=== PATIENT | male | born 1950 | race Caucasian/White ===

== ENCOUNTER 2019-05-25 17:21 | Emergency (ER) | payer OTHER ==
[2019-05-25 18:14] LABS: Absolute Lymphocytes (CBC) 1.7 K/uL (0.7-4.9); Basophils % 0.6 % (0-1.3); Hematocrit 36.7 % (39.6-49.0); Lymphocytes % 17.9 % (15.3-44.8); MPV 8.2 fL (7.6-11.3); RBC Red Blood Cell Count 4.21 M/uL (4.33-5.43)
[2019-05-25 18:28] LABS: Protime INR 1.05
[2019-05-25 18:32] LABS: Potassium 4.2 mmol/L (3.5-5.1)
--- NOTE | 2019-05-25 18:42 | RAD REPORT ---
EXAM DESCRIPTION: US - Extremity Nonvascular Limited - 05/25/2019 6:31 pm CLINICAL HISTORY: Buttock pain COMPARISON: None FINDINGS: Sonographic evaluation of the buttocks near midline demonstrate edema within the subcutane ous tissues. An abscess is not seen. A mass is not visualized IMPRESSION: Edema within the subcutaneous tissues of the buttocks near midline may indicate a cellul itis and should be correlated clinically
[2019-05-25] MEDS ORDERED: LIDOCAINE 2% W/EPI 1:200,000 MPF 20 ML VIAL IM ONE (19:05)
[2019-05-25] MEDS ORDERED: CLINDAMYCIN 900MG/D5W 900 MG/50 ML IVPB IV ONE (19:38)
--- NOTE | 2019-05-25 20:15 | EDPHYS ---
Physician Documentation [facility] Name: Srinivas Castrejon Age: 68 yrs Sex: Male : 1950 Arrival Date: 05/25/2019 Time: 17:25 Bed 16 Private MD: ED Physician Filipe Simms HPI: 05/25 17:55 This 68 yrs old Male presents to ER via Ambulatory with complaints of Abscess.cp 17:55 The patient presents with an abscess of the intergluteal cleft. Description: swollen, cp tense. Onset: The symptoms/episode began/occurred 1 week(s) ago. Associated signs and symptoms: Pertinent negatives: discharge, drainage, fever. Patient reports he is currently taking prescribed Keflex. Historical: - Allergies: 17:29 No Known Allergies; la1 - PMHx: 17:29 Diabetes - NIDDM; Hypertension; High Cholesterol; GERD; la1 - Immunization history:: Adult Immunizations up to date. - Social history:: Smoking status: Patient/guardian denies using tobacco. - Ebola Screening: : No symptoms or risks identified at this time. ROS: 18:05 Constitutional: Negative for body aches, chills, fever, poor PO intake. cp 18:05 Eyes: Negative for injury, pain, redness, and discharge. cp 18:05 Cardiovascular: Negative for chest pain. 18:05 Respiratory: Negative for cough, shortness of breath, wheezing. 18:05 Abdomen/GI: Negative for abdominal pain, nausea, vomiting, and diarrhea. 18:05 Skin: Positive for of the intergluteal cleft, pain, swelling. 18:05 All other systems are negative. Exam: 18:10 Constitutional: The patient appears in no acute distress, alert, awake, non-toxic, well cp developed, well nourished, obese. 18:10 Head/Face: Normocephalic, atraumatic. cp 18:10 Eyes: Periorbital structures: appear normal, Conjunctiva: normal, no exudate, no injection, Lids and lashes: appear normal, bilaterally. 18:10 ENT: External ear(s): are unremarkable, Nose: is normal, Mouth: is normal. 18:10 Chest/axilla: Inspection: normal. 18:10 Cardiovascular: Rate: normal. 18:10 Respiratory: the patient does not display signs of respiratory distress, Respirations: normal, no use of accessory muscles, no retractions, no splinting, no tachypnea. 18:10 Skin: abscess, that is small, of the intergluteal cleft, with surrounding cellulitis, that is mild. Vital Signs: 17:29 BP 145 / 60; Pulse 78; Resp 16; Temp 98.0; Pulse Ox 100% on R/A; Weight 120.2 kg; la1 Height 5 ft. 8 in. (172.72 cm); 19:00 BP 151 / 89; Pulse 80; Resp 16; Temp 98; Pulse Ox 100% ; Pain 8/10; rr5 20:25 BP 141 / 66; Pulse 75; Resp 17; Temp 97.5; Pulse Ox 99% on R/A; Pain 0/10; rr5 17:29 Body Mass Index 40.29 (120.20 kg, 172.72 cm) la1 Procedures: 20:10 I \T\ D: Incision and drainage was performed for an abscess of the pilonidal cyst Prepped cp with Betadine, Anesthetized with ml's 2% Lidocaine with epinephrine. 8 ml's 2% Lidocaine with epinephrine. mixed with 8ccs 0.5% Marcaine. Incised with #11 blade. Drained small amount purulent fluid. Packed with iodoform gauze, Dressing: sterile 4x4 gauze, the patient tolerated the procedure well. MDM: 17:45 Patient medically screened. cp 20:12 Data reviewed: vital signs, nurses notes, lab test result(s), and as a result, I will cp discharge patient. 20:12 Differential diagnosis: abscess, cellulitis. Response to treatment: the patient's cp symptoms have markedly improved after treatment. 05/25 17:47 Order name: CBC with Diff; Complete Time: 19:00 cp 05/25 17:47 Order name: BMP; Complete Time: 19:00 cp 05/25 17:47 Order name: US Extrmty Nonvasular Limited: check for abscess; Complete Time: 19:00 cp 05/25 17:47 Order name: PT-INR; Complete Time: 19:00 cp 05/25 17:47 Order name: Procalcitonin; Complete Time: 19:00 cp 05/25 20:34 Order name: Wound Culture rr5 05/25 17:47 Order name: IV; Complete Time: 17:56 cp 05/25 19:08 Order name: I\T\D Setup; Complete Time: 19:35 cp Administered Medications: 19:15 Drug: Marcaine (0.5 %) 5 ml {Note: given by page.} Volume: 10 ml; Route: Infiltration; rr5 20:34 Follow up: Response: No adverse reaction rr5 19:16 Drug: Lidocaine (1 %) 5 ml {Note: given by page.} Volume: 5 ml; Route: Infiltration; rr5 20:35 Follow up: Response: No adverse reaction rr5 19:47 Drug: Clindamycin 900 mg Route: IVPB; Infused Over: 30 mins; Site: left antecubital; rr5 20:15 Follow up: Response: No adverse reaction; IV Status: Completed infusion; IV Intake: [id number] Disposition: 05/25/19 20:13 Discharged to Home. Impression: Pilonidal cyst with abscess. - Condition is Stable. - Discharge Instructions: Incision and Drainage, Pilonidal Cyst. - Prescriptions for Clindamycin HCl 300 mg Oral Capsule - take 1 capsule by ORAL route every 6 hours for 10 days; 40 capsule. Tylenol- Codeine #3 300-30 mg Oral Tablet - take 2 tablets by ORAL route every 6 hours As needed; 15 tablet. Bactrim DS 800- 160 mg Oral Tablet - take 1 tablet by ORAL route every 12 hours for 10 days; 20 tablet. - Medication Reconciliation Form, Thank You Letter, Antibiotic Education, Prescription Opioid Use form. - Follow up: Francisco Correia MD; When: 48 Hours; Reason: Wound Recheck. - Problem is an ongoing problem. - Symptoms have improved. Signatures: Dispatcher [employer] EDMS Andrey Mantilla RN RN la1 Josh Ivan PA PA cp Roque, Raymond RN RN rr5 Corrections: (The following items were deleted from the chart) 20:35 20:13 05/25/2019 20:13 Discharged to Home. Impression: Pilonidal cyst with abscess. rr5 Condition is Stable. Forms are Medication Reconciliation Form, Thank You Letter, Antibiotic Education, Prescription Opioid Use. Follow up: Francisco Correia; When: 48 Hours; Reason: Wound Recheck. Problem is an ongoing problem. Symptoms have improved. cp
--- NOTE | 2019-05-25 20:15 | ER ---
Nurse's Notes [facility] Name: Srinivas Castrejon Age: 68 yrs Sex: Male : 1950 Arrival Date: 05/25/2019 Time: 17:25 Bed 16 Private MD: Diagnosis: Pilonidal cyst with abscess Presentation: 05/25 17:27 Presenting complaint: Patient states: I have an abscess in my butt crack, it has been la1 there about a week and I was on keflex but its not helping. Transition of care: patient was not received from another setting of care. Onset of symptoms was May 25, 2019. Risk Assessment: Do you want to hurt yourself or someone else? Patient reports no desire to harm self or others. Initial Sepsis Screen: Does the patient meet any 2 criteria? No. Patient's initial sepsis screen is negative. Does the patient have a suspected source of infection? No. Patient's initial sepsis screen is negative. Care prior to arrival: None. 17:27 Method Of Arrival: Ambulatory la1 17:27 Acuity: BETTY 3 la1 Triage Assessment: 17:31 General: Appears in no apparent distress. uncomfortable, Behavior is calm, cooperative, hj appropriate for age. Pain: Complains of pain in gluteal cleft. Historical: - Allergies: 17:29 No Known Allergies; la1 - PMHx: 17:29 Diabetes - NIDDM; Hypertension; High Cholesterol; GERD; la1 - Immunization history:: Adult Immunizations up to date. - Social history:: Smoking status: Patient/guardian denies using tobacco. - Ebola Screening: : No symptoms or risks identified at this time. Screenin:31 Abuse screen: Denies threats or abuse. Denies injuries from another. Nutritional hj screening: No deficits noted. Tuberculosis screening: No symptoms or risk factors identified. Fall Risk None identified. Assessment: 12:00 Neuro: Level of Consciousness is awake, alert, obeys commands, Oriented to person, rr5 place, time, situation, Appropriate for age. Cardiovascular: Capillary refill < 3 seconds Patient's skin is warm and dry. Respiratory: Airway is patent Respiratory effort is even, unlabored, Respiratory pattern is regular, symmetrical. GI: No signs and/or symptoms were reported involving the gastrointestinal system. : No signs and/or symptoms were reported regarding the genitourinary system. EENT: No signs and/or symptoms were reported regarding the EENT system. Derm: Skin temperature is warm Abscess located on buttocks is dime sized, has clear drainage, is hot to touch, is red, is raised, Reports pain that is 8 out of 10 on a pain scale. Musculoskeletal: Circulation, motion, and sensation intact. Capillary refill < 3 seconds. 19:00 General: Appears in no apparent distress. comfortable, Behavior is calm, cooperative, rr5 appropriate for age. Pain: Complains of pain in buttocks Pain does not radiate. Pain currently is 8 out of 10 on a pain scale. Quality of pain is described as aching, Pain began gradually, Is intermittent. 20:25 Reassessment: Patient appears in no apparent distress at this time. Patient is alert, rr5 oriented x 3, equal unlabored respirations, skin warm/dry/pink. discharge instruction given and explained without complaints made. Patient states feeling better. Patient states symptoms have improved. Vital Signs: 17:29 BP 145 / 60; Pulse 78; Resp 16; Temp 98.0; Pulse Ox 100% on R/A; Weight 120.2 kg; la1 Height 5 ft. 8 in. (172.72 cm); 19:00 BP 151 / 89; Pulse 80; Resp 16; Temp 98; Pulse Ox 100% ; Pain 8/10; rr5 20:25 BP 141 / 66; Pulse 75; Resp 17; Temp 97.5; Pulse Ox 99% on R/A; Pain 0/10; rr5 17:29 Body Mass Index 40.29 (120.20 kg, 172.72 cm) la1 ED Course: 17:25 Patient arrived in ED. mr 17:29 Triage completed. la1 17:29 Arm band placed on left wrist. la1 17:30 Francisco Arceo RN is Primary Nurse. hj 17:31 Patient has correct armband on for positive identification. Placed in gown. Bed in low hj position. Call light in reach. Side rails up X 1. Adult w/ patient. 17:32 Josh Ivan PA is PHCP. cp 17:32 Filipe Simms MD is Attending Physician. cp 18:31 US Extrmty Nonvasular Limited: check for abscess In Process Unspecified. EDMS 20:00 Assist provider with I \T\ D: of an abscess on Set up I\T\D tray. Performed by Josh Ivan rr 5 PA Culture sent to lab. Wound packed. 4X4s, Dressing with 4X4s, tape Patient tolerated well. 20:12 Francisco Correia MD is Referral Physician. cp 20:30 IV discontinued, intact, bleeding controlled, No redness/swelling at site. Pressure rr5 dressing applied. 20:36 Wound Culture Sent. rr5 Administered Medications: 19:15 Drug: Marcaine (0.5 %) 5 ml {Note: given by page.} Volume: 10 ml; Route: Infiltration; rr5 20:34 Follow up: Response: No adverse reaction rr5 19:16 Drug: Lidocaine (1 %) 5 ml {Note: given by page.} Volume: 5 ml; Route: Infiltration; rr5 20:35 Follow up: Response: No adverse reaction rr5 19:47 Drug: Clindamycin 900 mg Route: IVPB; Infused Over: 30 mins; Site: left antecubital; rr5 20:15 Follow up: Response: No adverse reaction; IV Status: Completed infusion; IV Intake: [id number] Intake: 20:15 IV: 50ml; Total: 50ml. rr5 Outcome: 20:13 Discharge ordered by . cp 20:30 Discharged to home ambulatory, with family. rr5 20:30 Condition: stable 20:30 Discharge instructions given to patient, Instructed on discharge instructions, follow up and referral plans. medication usage, Demonstrated understanding of instructions, follow-up care, medications, Prescriptions given X 3. 20:35 Patient left the ED. rr5 Signatures: Dispatcher [employer] BALJEETOH Maikel Dorys Andrey Payton RN RN la1 Francisco Arceo, RN Josh Guillen PA PA cp Roque, Raymond, RN RN rr5
== END 2019-05-25 20:35 | disposition home or self-care (01) ==
LOC: ER 17:21
PROC: 0J990ZZ Drainage of Buttock Subcutaneous Tissue and Fascia, Open Approach (ICD-10-PCS; principal; 2019-05-25)
DX: L05.01 Pilonidal cyst with abscess (principal)
CPT/HCPCS: 36415; 76882; 80048; 84145; 85025; 85610; 87070; 87205; 96365; 99284

== ENCOUNTER 2019-08-10 06:15 | Day surgery (SDC) | payer OTHER ==
--- NOTE | 2019-08-08 15:38 | RAD REPORT ---
EXAM DESCRIPTION: RAD - Chest Pa And Lat (2 Views) - 08/08/2019 3:15 pm CLINICAL HISTORY: preop, pending soft tissue mass removal from the back COMPARISON: None. TECHNIQUE: PA and lateral views of the chest were obtained. FINDINGS: The lungs are clear. Interstitial pattern not outside of normal range. Heart size is norm al and central vasculature is within normal limits. No pleural effusion or pneumothorax seen. No ac [place] bony finding noted. No aortic abnormality. IMPRESSION: No acute cardiopulmonary process.
--- NOTE | 2019-08-08 15:42 | EKG ---
Test Date: 2019-08-08 Test Time: 15:56:12 Reed Polisher: YESICA MEASUREMENT RESULTS: Intervals: Rate: 72 NM: 138 QRSD: 78 QT: 380 QTc: 416 Rosalie: P: 40 NM: 138 QRS: -2 T: 10 INTERPRETIVE STATEMENTS: Normal sinus rhythm Inferior infarct, age undetermined Abnormal ECG No previous ECG available for comparison Electronically Signed On 08-08-19 15:41:31 ENTRY EXAMINER by Beck Estrada
[2019-08-08 15:43] LABS: Absolute Lymphocytes (CBC) 1.5 K/uL (0.7-4.9); Basophils % 0.9 % (0-1.3); Hematocrit 37.5 % (39.6-49.0); Lymphocytes % 15.4 % (15.3-44.8); MPV 8.4 fL (7.6-11.3); RBC Red Blood Cell Count 4.29 M/uL (4.33-5.43)
[2019-08-08 15:57] LABS: Potassium 4.2 mmol/L (3.5-5.1)
[2019-08-10] MEDS ORDERED: NA CHLORIDE 0.9% 1,000 ML ONE (06:47)
[2019-08-10] MEDS ORDERED: MIDAZOLAM HCL 2 MG/2 ML INJ ONE (07:11)
[2019-08-10] MEDS ORDERED: FENTANYL CITR 100 MCG/2 ML ONE (07:11)
[2019-08-10] MEDS ORDERED: PROPOFOL 200 MG/20 ML VIAL IV ONE (07:11)
[2019-08-10] MEDS ORDERED: ROCURONIUM 50 MG/5 ML VIAL IV ONE (07:11)
[2019-08-10] MEDS ORDERED: LIDOCAINE 1% MPF 5 ML VIAL ONE (07:11)
[2019-08-10] MEDS ORDERED: METHYLENE BLUE 0.5% 10 ML AMP ONE (07:12)
[2019-08-10] MEDS ORDERED: Mastisol Adhesive Liq ONE (07:17)
[2019-08-10] MEDS ORDERED: CEFAZOLIN/SWI 1gm 1 GM/10 ML SYR ONE (07:30)
[2019-08-10] MEDS ORDERED: NEOSTIGMINE 1 MG/ML -5 ML ONE (07:52)
[2019-08-10] MEDS ORDERED: GLYCOPYRROLATE 0.2 MG/ML SYR ONE ×3 (07:53→08:11)
[2019-08-10] MEDS ORDERED: KETOROLAC 30 MG/ML INJ ONE (07:53)
[2019-08-10] MEDS ORDERED: ONDANSETRON 4 MG/2 ML VIAL ONE (08:00)
[2019-08-10] MEDS ORDERED: EPHEDRINE SULF 50 MG/ML VIAL ONE (08:01)
[2019-08-10] MEDS ORDERED: NS 0.9% VIAL 10 ML ONE (08:02)
--- NOTE | 2019-08-10 08:08 | P.BOP ---
Preoperative diagnosis: infected pilonidal cyst Postoperative diagnosis: same Primary procedure: Wide excision of infected pilonidal cyst Estimated blood loss: <10cc Specimen: cyst Findings: as above Anesthesia: General Complications: None Transferred to: Recovery Room Condition: Good
[2019-08-10] MEDS ORDERED: ALBUTEROL 2.5 MG/3 ML NEB SOL ONE (08:16)
[2019-08-10] MEDS ORDERED: SUCCINYLCHOLINE 20 MG/ML (10 ML) IV ONE (08:22)
[2019-08-10] MEDS ORDERED: CODEINE 30MG/APAP 300MG TAB ONE (09:23)
[2019-08-10 09:31] VITALS: BP 174/62; TEMP 97.7; O2SAT 94
--- NOTE | 2019-08-11 02:18 | DS ---
Date of Discharge: 08/10/2019 Diagnosis: Infected pilonidal cyst. Procedure: Wide excision of infected pilonidal cyst. Disposition: Home. Activity: As tolerated. No heavy lifting. Followup: Follow up in my office in 1 week. Call for appointment at [phone]. Wet-to-dry dressing and normal saline daily. Medications: See orders. KAELYN/JOSE DANIEL Voice ID: [id number] Report ID: [id number]
--- NOTE | 2019-08-11 02:18 | OP ---
Date of Procedure: 08/10/2019 Surgeon: Francisco Correia MD Preoperative Diagnosis: Infected pilonidal cyst. Postoperative Diagnosis: Infected pilonidal cyst. Procedure Performed: Wide excision of infected pilonidal cyst about 3 x 3 x 2 cm. Estimated Blood Loss: Less than 10 mL. Specimens: Cyst. Findings: As above. Anesthesia: General plus local. Indications: This is the case of a 68-year-old patient, who comes with infected pilonidal cyst, on a nd off drainage. The benefits, alternatives, and risks of wide excision were fully explained, which include but are not limited to infection, bleeding, damage to adjacent structures, anesthesia complic ations, recurrence, [place], and even . He also understands this may not relieve any symptoms. He m ight need more than one surgical intervention. He may require wound care. He understood, signed a c onsent. The area of concern was previously marked. Description Of Procedure: Patient was brought to the operating room, placed in supine position. Ane sthesia was done without complication. Patient was placed in prone position with proper protection. Back and sacral area was prepped and draped in sterile fashion. We noted the opening coming from th e previous drainage. So, we put the methylene blue over that area. We were able to find the stain i n the cavities inside. We made an incision, followed these cavities, had a complex pilonidal cyst in that region, completely excised leaving a cavity behind as described above. We obtained hemostasis. Then we injected local anesthetic, irrigate the area, and then packed the area with wet-to-dry dressing. Patient tolerated the procedure well. Patient was sent to recovery in stable c ondition. KAELYN/JOSE DANIEL Voice ID: [id number] Report ID: [id number]
== END 2019-08-10 10:05 | disposition home or self-care (01) ==
LOC: OR 06:15
PROVIDERS: ATTEND Surgery
PROC: 0JB90ZZ Excision of Buttock Subcutaneous Tissue and Fascia, Open Approach (ICD-10-PCS; principal; 2019-08-10 07:30)
DX: L05.91 Pilonidal cyst without abscess (principal); E11.9 Type 2 diabetes mellitus without complications; I10 Essential (primary) hypertension; K21.9 Gastro-esophageal reflux disease without esophagitis; E78.00 Pure hypercholesterolemia, unspecified; Z80.1 Family history of malignant neoplasm of trachea, bronchus and lung; Z83.3 Family history of diabetes mellitus; Z82.49 Family history of ischemic heart disease and other diseases of the circulatory system
CPT/HCPCS: 93005; 85025; 80048; 36415; 82947 ×2; 88304; 71046; 11772; J2704; J0330; J2250; J3010; J2710; J0690; J7030; J2405

== ENCOUNTER 2020-10-12 15:58 | Emergency (ER) | payer OTHER ==
--- OUTSIDE RECORDS SUMMARY | 2020-10-12 16:01 | XMS REPORT | Continuity of Care Document ---
:1950 Author Organization [facility] t Address [address] [place] [address] Care Team Providers Name Role Phone Radha MOORE, Declan Attending Clinician Deny NEVES, T Attending Clinician Unavailable Hamilton TRACEY Attending Clinician Only, Test Attending Clinician Unavailable Problems This patient has no known problems. Allergies, Adverse Reactions, Alerts This patient has no known allergies or adverse reactions. Medications This patient has no known medications. Procedures This patient has no known procedures. Encounters Start End Encounter Admission Attending Care Care Encounter Source Date/Time Date/Time Type Type Clinicians Facility Department ID 2020-05-23 2020-05-23 Telephone NED Garcia [id number] 00:00:00 00:00:00 Handy GARCIA [id number] 2020-05-23 2020-05-23 Letter NED Barclay [id number] 00:00:00 00:00:00 (Out) Chika GARCIA [id number] 2020-05-23 2020-05-23 Letter THOMAS Villasenor [id number] 00:00:00 00:00:00 (Out) Vanesa Keith [id number] [place] [id number] 2020-05-22 2020-05-22 Laboratory Only, [facility] [id number] 11:48:05 12:03:05 Only Test [place] [id number] [id number] [place] [id number] Results This patient has no known results.
[2020-10-12 21:04] LABS: Urine Blood NEGATIVE (NEG); Urine Glucose NEGATIVE (NEG); Urine Protein 3+ (NEG)
[2020-10-12 21:33] LABS: Basophils % 0.3 % (0-1.3); Hematocrit 38.5 % (39.6-49.0); Lymphocytes % 19.5 % (15.3-44.8); RBC Red Blood Cell Count 4.14 M/uL (4.33-5.43)
[2020-10-12] MEDS ORDERED: ONDANSETRON 4 MG/2 ML VIAL ONE (21:35)
[2020-10-12] MEDS ORDERED: LORazepam 2 MG/ML VIAL ONE (21:35)
[2020-10-12] MEDS ORDERED: FAMOTIDINE 20 MG/2 ML VIAL IV ONE (21:35)
[2020-10-12] MEDS ORDERED: NA CHLORIDE 0.9% 1,000 ML ONE (21:35)
[2020-10-12 21:53] LABS: ALT/SGPT 47 U/L (12-78); AST/SGOT 35 U/L (15-37); Albumin 3.4 g/dL (3.4-5.0); Alkaline Phosphatase 163 U/L (45-117); BUN Blood Urea Nitrogen 19 mg/dL (7-18); Bicarbonate 27 mmol/L (21-32); Bilirubin Direct 0.3 mg/dL (0-0.2); Bilirubin Total 0.7 mg/dL (0.2-1.0); Glucose Level 140 mg/dL (74-106); Lipase 118 U/L (73-393); Potassium 3.8 mmol/L (3.5-5.1); Protein, Total 6.8 g/dL (6.4-8.2); Sodium Level 138 mmol/L (136-145)
--- NOTE | 2020-10-13 00:30 | EDPHYS ---
Physician Documentation [facility] Name: Srinivas Castrejon Age: 69 yrs Sex: Male : 1950 Arrival Date: 10/12/2020 Time: 16:02 Bed 16 Private MD: Nam Goode T ED Physician Roel Garrido HPI: 10/12 21:08 This 69 yrs old Male presents to ER via Ambulatory with complaints of Alcohol mh7 Withdrawal, Diarrhea. 21:08 The patient presents with abdominal pain in the upper abdomen. Onset: The mh7 symptoms/episode began/occurred yesterday. The symptoms do not radiate. Associated signs and symptoms: Pertinent positives: diarrhea, nausea, Pertinent negatives: anorexia, blood in stools, chest pain, constipation, fever, headache, hematuria, palpitations, shortness of breath, testicular pain, vomiting, vomiting blood, States diarrhea for over a year. The symptoms are described as intermittent, vague, waxing/waning. Modifying factors: The symptoms are alleviated by nothing, the symptoms are aggravated by nothing. Severity of pain: At its worst the pain was moderate yesterday, in the emergency department the pain has improved moderately. Also states that he has had some shakiness since he stopped drinking alcohol 2 days ago. He had been drinking wine daily then intermittent and Listerine for the 2 weeks.. Historical: - Allergies: 16:23 No Known Allergies; ss - PMHx: 16:23 Diabetes - NIDDM; GERD; High Cholesterol; Hypertension; Alcoholism; ss - Immunization history:: Adult Immunizations up to date. - Social history:: Smoking status: Patient denies any tobacco usage or history of. ROS: 21:08 Constitutional: Negative for fever, chills, and weight loss, Eyes: Negative for injury, mh7 pain, redness, and discharge, ENT: Negative for injury, pain, and discharge, Neck: Negative for injury, pain, and swelling, Cardiovascular: Negative for chest pain, palpitations, and edema, Respiratory: Negative for shortness of breath, cough, wheezing, and pleuritic chest pain, Back: Negative for injury and pain, : Negative for injury, bleeding, discharge, and swelling, MS/Extremity: Negative for injury and deformity, Skin: Negative for injury, rash, and discoloration, Neuro: Negative for headache, weakness, numbness, tingling, and seizure, Psych: Negative for depression, anxiety, suicide ideation, homicidal ideation, and hallucinations, Allergy/Immunology: Negative for hives, rash, and allergies, Endocrine: Negative for neck swelling, polydipsia, polyuria, polyphagia, and marked weight changes, Hematologic/Lymphatic: Negative for swollen nodes, abnormal bleeding, and unusual bruising. Exam: 21:08 Constitutional: This is a well developed, well nourished patient who is awake, alert, mh7 and in no acute distress. Head/Face: Normocephalic, atraumatic. Eyes: Pupils equal round and reactive to light, extra-ocular motions intact. Lids and lashes normal. Conjunctiva and sclera are non-icteric and not injected. Cornea within normal limits. Periorbital areas with no swelling, redness, or edema. ENT: Nares patent. No nasal discharge, no septal abnormalities noted. Tympanic membranes are normal and external auditory canals are clear. Oropharynx with no redness, swelling, or masses, exudates, or evidence of obstruction, uvula midline. Mucous membranes moist. Neck: Trachea midline, no thyromegaly or masses palpated, and no cervical lymphadenopathy. Supple, full range of motion without nuchal rigidity, or vertebral point tenderness. No Meningismus. Chest/axilla: Normal chest wall appearance and motion. Nontender with no deformity. No lesions are appreciated. Cardiovascular: Regular rate and rhythm with a normal S1 and S2. No gallops, murmurs, or rubs. Normal PMI, no JVD. No pulse deficits. Respiratory: Lungs have equal breath sounds bilaterally, clear to auscultation and percussion. No rales, rhonchi or wheezes noted. No increased work of breathing, no retractions or nasal flaring. 21:08 Back: No spinal tenderness. No costovertebral tenderness. Full range of motion. Skin: Warm, dry with normal turgor. Normal color with no rashes, no lesions, and no evidence of cellulitis. 21:08 Neuro: Awake and alert, GCS 15, oriented to person, place, time, and situation. Cranial nerves II-XII grossly intact. Motor strength 5/5 in all extremities. Sensory grossly intact. Cerebellar exam normal. Normal gait. Psych: Awake, alert, with orientation to person, place and time. Behavior, mood, and affect are within normal limits. 21:08 Abdomen/GI: Inspection: scar(s), are noted in the umbilical area and suprapubic area, Bowel sounds: normal, in all quadrants, Palpation: moderate abdominal tenderness, in the epigastric area, right upper quadrant and left upper quadrant, Rectal exam: the exam is deferred, because of patient request, Indicators: McBurney's point is not tender, Rockwell's sign is negative, Rovsing's sign is negative, Obturator sign is negative, Psoas sign is negative, Liver: no appreciated palpable abnormalities, Hernia: not appreciated. 21:08 Musculoskeletal/extremity: Extremities: noted in the right hand and left hand: mild tremors, ROM: intact in all extremities, Circulation is intact in all extremities. Pulses: are normal with no appreciated deficits, Perfusion: the patient is normally perfused throughout, Perfusion: the extremity is normally perfused throughout, Calf tenderness, is absent, Edema, is not appreciated, Sensation intact. Compartment Syndrome exam of affected extremity: is normal. no pain, no numbness, no tingling, no sensation deficit, no palor, no weak pulses, Joints: All joints appear normal with full range of motion. Weight bearing: able to fully bear weight, without difficulty. Vital Signs: 16:19 BP 136 / 65; Pulse 81; Resp 18; Temp 98.5(TE); Pulse Ox 99% on R/A; Weight 104.33 kg; ss Height 5 ft. 8 in. (172.72 cm); Pain 2/10; 20:30 BP 141 / 62; Pulse 74; Resp 18; Pulse Ox 100% on R/A; zb 21:30 BP 151 / 79; Pulse 79; Resp 16; Pulse Ox 100% on R/A; zb 22:30 BP 133 / 66; Pulse 69; Resp 14; Pulse Ox 100% on R/A; zb 23:00 BP 136 / 66; Pulse 72; Resp 14; Pulse Ox 100% on R/A; zb 10/13 00:00 BP 138 / 61; Pulse 69; Resp 16; Pulse Ox 99% on R/A; zb 10/12 16:19 Body Mass Index 34.97 (104.33 kg, 172.72 cm) ss MDM: 00:26 Differential diagnosis: bowel obstruction, diverticulitis, gastritis, gastroesophageal mh7 reflux disease, non-specific abd pain, pancreatitis, Peptic Ulcer Disease, Ureterolithiasis, urinary tract infection. Data reviewed: vital signs, nurses notes, lab test result(s), CBC, electrolytes, urinalysis. Data interpreted: Pulse oximetry: on room air is 100 %. Interpretation: normal. Counseling: I had a detailed discussion with the patient and/or guardian regarding: the historical points, exam findings, and any diagnostic results supporting the discharge/admit diagnosis, the presence of at least one elevated blood pressure reading (>120/80) during this emergency department visit, lab results, radiology results, the need for outpatient follow up, to return to the emergency department if symptoms worsen or persist or if there are any questions or concerns that arise at home. Response to treatment: the patient's symptoms have resolved after treatment, the patient's blood pressure is in an acceptable range, mental status has returned to baseline, the patient no longer shows bradycardia, the patient is not short of breath, the patient is not tachycardic, the patient's pain is gone, the patient's temperature has normalized, patient is well hydrated. 00:28 Patient medically screened. [facility] 10/12 20:45 Order name: Basic Metabolic Panel; Complete Time: 22:12 [facility] 10/12 20:45 Order name: CBC with Diff; Complete Time: 22:12 [facility] 10/12 20:45 Order name: Hepatic Function; Complete Time: 22:12 [facility] 10/12 20:45 Order name: Lipase; Complete Time: 22:12 [facility] 10/12 20:45 Order name: ETOH Level; Complete Time: 22:53 [facility] 10/12 20:59 Order name: Urine Dipstick--Ancillary (enter results); Complete Time: 22:12 [facility] 10/12 20:45 Order name: IV Saline Lock; Complete Time: 21:12 [facility] 10/12 20:45 Order name: Labs collected and sent; Complete Time: 21:12 [facility] 10/12 20:45 Order name: CT Abd/Pelvis - IV Contrast Only [facility] 10/12 20:45 Order name: Urine Dipstick-Ancillary (obtain specimen); Complete Time: 21:01 [facility] 10/12 20:45 Order name: EKG - Nurse/Tech; Complete Time: 21: [facility] Administered Medications: 10/12 21:45 Drug: Pepcid 20 mg Route: IVP; Site: left antecubital; zb 23:32 Follow up: Response: No adverse reaction zb 21:45 Drug: Zofran (Ondansetron) 4 mg Route: IVP; Site: left antecubital; zb 23:31 Follow up: Response: No adverse reaction; Pain is decreased zb 21:45 Drug: Ativan 1 mg Route: IVP; Site: left antecubital; zb 23:31 Follow up: Response: No adverse reaction; Marked relief of symptoms zb 21:46 Drug: NS 0.9% 1000 ml Route: IV; Rate: 1000 ml; Site: left antecubital; zb 10/13 00:15 Follow up: Response: No adverse reaction; IV Status: Completed infusion; IV Intake: zb 1000ml 00:35 Drug: Librium - chlordiazePOXIDE 50 mg Route: PO; zb 00:59 Follow up: Response: No adverse reaction zb Disposition: 10/13/20 00:28 Discharged to Home. Impression: Upper abdominal pain, unspecified, Diarrhea, unspecified, Alcohol dependence with withdrawal, uncomplicated. - Condition is Stable. - Discharge Instructions: Abdominal Pain, Adult, [id number], Diarrhea, Adult, Niog-[id number], Alcohol Withdrawal, [id number]. - Prescriptions for Zofran ODT 4 mg Oral tablet,disintegrating - place 1 tablet by TRANSLINGUAL route every 8 hours; 6 tablet. Bentyl 20 mg Oral Tablet - take 1 tablet by ORAL route every 6 hours As needed; 20 tablet. Pepcid 20 mg Oral Tablet - take 1 tablet by ORAL route every 12 hours for 5 days; 10 tablet. - Medication Reconciliation Form, Thank You Letter, Antibiotic Education, Prescription Opioid Use form. - Follow up: Private Physician; When: 1 - 2 days; Reason: Worsening of condition, Recheck today's complaints, Continuance of care, Re-evaluation by your physician. - Problem is new. - Symptoms have improved. Signatures: Dispatcher [employer] EDMS Tawny Goodrich RN RN ss Andrey Mantilla, BIT WELDER-C BIT WELDER-Cla1 Roel Garrido MD MD 7 Nery Nye RN RN zb Corrections: (The following items were deleted from the chart) 01:03 00:28 10/13/2020 00:28 Discharged to Home. Impression: Upper abdominal pain, zb unspecified; Diarrhea, unspecified; Alcohol dependence with withdrawal, uncomplicated. Condition is Stable. Forms are Medication Reconciliation Form, Thank You Letter, Antibiotic Education, Prescription Opioid Use. Follow up: Private Physician; When: 1 - 2 days; Reason: Worsening of condition, Recheck today's complaints, Continuance of care, Re-evaluation by your physician. Problem is new. Symptoms have improved. mh7
--- NOTE | 2020-10-13 00:30 | ER ---
Nurse's Notes [facility] Name: Srinivas Castrejon Age: 69 yrs Sex: Male : 1950 Arrival Date: 10/12/2020 Time: 16:02 Bed 16 Private MD: Nam Goode T Diagnosis: Upper abdominal pain, unspecified;Diarrhea, unspecified;Alcohol dependence with withdrawal, uncomplicated Presentation: 10/12 16:19 Chief complaint: Patient states: "I have had belly pain that started yesterday and ss diarrhea that started over a year ago, but when I'm mostly here for is that I drink a lot, and I stopped 2 days ago and now I don't feel great and I'm shaking." Pt reports that recently over the period of two weeks he drank Listerine because he did not have anymore alcohol. Coronavirus screen: Client denies travel out of the [place] in the last 14 days. Ebola Screen: Patient denies exposure to infectious person. Patient denies travel to an Ebola-affected area in the 21 days before illness onset. Initial Sepsis Screen: Does the patient meet any 2 criteria? No. Patient's initial sepsis screen is negative. Does the patient have a suspected source of infection? No. Patient's initial sepsis screen is negative. Risk Assessment: Do you want to hurt yourself or someone else? Patient reports no desire to harm self or others. Onset of symptoms is unknown. 16:19 Method Of Arrival: Ambulatory ss 16:19 Acuity: BETTY 3 ss Historical: - Allergies: 16:23 No Known Allergies; ss - PMHx: 16:23 Diabetes - NIDDM; GERD; High Cholesterol; Hypertension; Alcoholism; ss - Immunization history:: Adult Immunizations up to date. - Social history:: Smoking status: Patient denies any tobacco usage or history of. Screenin:30 Abuse screen: Denies threats or abuse. Denies injuries from another. Nutritional zb screening: No deficits noted. Tuberculosis screening: No symptoms or risk factors identified. Fall Risk No fall in past 12 months (0 pts). No secondary diagnosis (0 pts). IV access (20 points). Ambulatory Aid- None/Bed Rest/Nurse Assist (0 pts). Gait- Normal/Bed Rest/Wheelchair (0 pts) Mental Status- Oriented to own ability (0 pts). Total Elizondo Fall Scale indicates Low Risk Score (25-44 pts). Fall prevention measures have been instituted. Side Rails Up X 2 Placed close to Nursing Station Frequent Obs/Assesments occuring Family Present and informed to notify staff if they need to leave bedside As available Patient and Family Educated on Fall Prevention Program and strategies. Assessment: 20:30 General: Appears in no apparent distress. uncomfortable, Behavior is calm, cooperative, zb appropriate for age, Reports feeling ill for 1-2 days, hand tremors. Pain: Complains of pain in left upper quadrant and right upper quadrant and epigastric area and umbilical area Pain does not radiate. Pain currently is 5 out of 10 on a pain scale. Quality of pain is described as aching, Pain began 1 day ago. Neuro: Level of Consciousness is awake, alert, obeys commands, Oriented to person, place, time, situation. Cardiovascular: Reports nausea, Heart tones S1 S2 present Capillary refill < 3 seconds in bilateral fingers Patient's skin is warm and dry. Respiratory: Airway is patent Respiratory effort is even, unlabored, Respiratory pattern is regular, symmetrical, Breath sounds are clear bilaterally. GI: Abdomen is round non-distended, Bowel sounds present X 4 quads. Parent/caregiver reports the patient having diarrhea, nausea, vomiting. : No signs and/or symptoms were reported regarding the genitourinary system. EENT: No signs and/or symptoms were reported regarding the EENT system. Derm: Skin is intact, is healthy with good turgor, Skin is diaphoretic, Skin is Skin temperature is warm. Musculoskeletal: Circulation, motion, and sensation intact. Capillary refill < 3 seconds, in bilateral fingers. Range of motion: intact in all extremities. 21:30 Reassessment: Patient appears in no apparent distress at this time. Patient and/or zb family updated on plan of care and expected duration. Pain level reassessed. Patient is alert, oriented x 3, equal unlabored respirations, skin warm/dry/pink. pt c/o discomfort abdominal area. tremors noted bilaterally. pt given warm blanket. 22:30 Reassessment: Patient appears in no apparent distress at this time. Patient and/or zb family updated on plan of care and expected duration. Pain level reassessed. Patient is alert, oriented x 3, equal unlabored respirations, skin warm/dry/pink. pt lying in bed. no c/o states he comfortable. 23:00 Reassessment: Patient appears in no apparent distress at this time. Patient and/or zb family updated on plan of care and expected duration. Pain level reassessed. Patient is alert, oriented x 3, equal unlabored respirations, skin warm/dry/pink. tremors have stopped. pt states he would like some ice. notified ECP. 10/13 00:00 Reassessment: Patient appears in no apparent distress at this time. Patient and/or zb family updated on plan of care and expected duration. Pain level reassessed. Patient is alert, oriented x 3, equal unlabored respirations, skin warm/dry/pink. pt tremors stoop, sx are better. denies current stomach pain. pt states he feels a lot better than before. 00:15 Reassessment: Hospitalist at bedside discussing POC w/ patient. zb 00:30 Reassessment: Patient appears in no apparent distress at this time. Patient and/or zb family updated on plan of care and expected duration. Pain level reassessed. Patient is alert, oriented x 3, equal unlabored respirations, skin warm/dry/pink. pt ambulated. gait steady. d/c instructions given to patient. no c/o of pain at this time. Vital Signs: 10/12 16:19 BP 136 / 65; Pulse 81; Resp 18; Temp 98.5(TE); Pulse Ox 99% on R/A; Weight 104.33 kg; ss Height 5 ft. 8 in. (172.72 cm); Pain 2/10; 20:30 BP 141 / 62; Pulse 74; Resp 18; Pulse Ox 100% on R/A; zb 21:30 BP 151 / 79; Pulse 79; Resp 16; Pulse Ox 100% on R/A; zb 22:30 BP 133 / 66; Pulse 69; Resp 14; Pulse Ox 100% on R/A; zb 23:00 BP 136 / 66; Pulse 72; Resp 14; Pulse Ox 100% on R/A; zb 10/13 00:00 BP 138 / 61; Pulse 69; Resp 16; Pulse Ox 99% on R/A; zb 10/12 16:19 Body Mass Index 34.97 (104.33 kg, 172.72 cm) ss ED Course: 10/12 16:02 Patient arrived in ED. ag5 16:02 Nam Goode MD is Private Physician. 5 16:22 Triage completed. 16:23 Arm band placed on right wrist. 20:16 Roel Garrido MD is Attending Physician. [facility] 20:23 Nery Nye, RN is Primary Nurse. zb 20:49 Radiology exam delayed due to IV insertion attempt and/or patient not having vm2 appropriate IV at this time. 21:11 Inserted saline lock: 20 gauge in left antecubital area, using aseptic technique. Blood dh4 collected. 22:13 Patient has correct armband on for positive identification. Bed in low position. Call zb light in reach. Side rails up X 1. nurse monitoring on. Pulse ox on. NIBP on. Door closed. Noise minimized. Warm blanket given. Pillow given. 22:36 CT Abd/Pelvis - IV Contrast Only In Process Unspecified. EDMS 10/13 01:02 No provider procedures requiring assistance completed. IV discontinued, intact, zb bleeding controlled, No redness/swelling at site. Pressure dressing applied. Administered Medications: 10/12 21:45 Drug: Pepcid 20 mg Route: IVP; Site: left antecubital; zb 23:32 Follow up: Response: No adverse reaction zb 21:45 Drug: Zofran (Ondansetron) 4 mg Route: IVP; Site: left antecubital; zb 23:31 Follow up: Response: No adverse reaction; Pain is decreased zb 21:45 Drug: Ativan 1 mg Route: IVP; Site: left antecubital; zb 23:31 Follow up: Response: No adverse reaction; Marked relief of symptoms zb 21:46 Drug: NS 0.9% 1000 ml Route: IV; Rate: 1000 ml; Site: left antecubital; zb 10/13 00:15 Follow up: Response: No adverse reaction; IV Status: Completed infusion; IV Intake: zb 1000ml 00:35 Drug: Librium - chlordiazePOXIDE 50 mg Route: PO; zb 00:59 Follow up: Response: No adverse reaction zb Intake: 00:15 IV: 1000ml; Total: 1000ml. zb Outcome: 00:28 Discharge ordered by . 7 01:02 Discharged to home ambulatory. nicolette 01:02 Condition: stable 01:02 Discharge instructions given to patient, Instructed on discharge instructions, follow up and referral plans. medication usage, Demonstrated understanding of instructions, follow-up care, medications, Prescriptions given X 3. 01:03 Patient left the ED. nicolette Signatures: Dispatcher [employer] EDMS Tawny Goodrich, RN RN Kellee Samuel 2 Kia Gracia 5 [place] 4 Roel Garrido MD MD mh7 Brown, Zipporah, RN RN zb
[2020-10-13] MEDS ORDERED: chlordiazePOXIDE HCl 25 MG CAP ONE (00:43)
[2020-10-13 04:46] VITALS: TEMP 98.5
[2020-10-13 04:52] VITALS: BP 138/61; O2SAT 99
--- NOTE | 2020-10-13 11:44 | RAD REPORT ---
EXAM DESCRIPTION: CT - Abdomen Pelvis W Contrast - 10/13/2020 6:53 am CLINICAL HISTORY: ABD PAIN COMPARISON: None Available. TECHNIQUE: CT of the abdomen and pelvis performed following IV administration of iodinated contras t.. Arterial and portal phase imaging available. FINDINGS: Lung Bases: The visualized lung bases are clear. Bones: Multilevel degenerative endplate spondylosis and facet arthropathy. Abdomen: Liver: The liver has normal size and decreased density. No intrahepatic biliary dilatation. Gallbladder: No calcified gallstones. Spleen, Pancreas, and Adrenal Glands: Fatty replacement of the pancreas. Spleen and adrenal glands are unremarkable. Kidneys: No hydronephrosis or obstructing calculus. Bilateral benign-appearing renal cysts. Vasculature: Aortoiliac atherosclerosis. IVC is unremarkable. The portal vein is patent. The proxim al visceral and renal arteries are patent. Stomach: The stomach and duodenum have normal course. Other: No free intraperitoneal air. No free fluid or lymphadenopathy. Pelvis: Bladder: Urinary bladder is unremarkable. Bowel: No dilated loops of large or small bowel. Appendix: Not identified. Likely prior appendectomy. Pelvis: Enlarged prostate. IMPRESSION: 1. No acute inflammatory or obstructive process identified. 2. Hepatic steatosis. 3. Enlarged prostate. This exam was performed according to our departmental dose-optimization program, which includes autom ated exposure control, adjustment of the mA and/or kV according to patient size and/or use of iterati ve reconstruction technique. Electronically signed by: Merrick Taylor 10/12/2020 10:51 PM [facility] Due to temporary technical issues with the PACS/Fluency reporting system, reports are being signed by the in house radiologists without review as a courtesy to insure prompt reporting. The interpreting radiologist is fully responsible for the content of the report.
--- NOTE | 2020-10-15 11:30 | EKG ---
Test Date: 2020-10-12 Test Time: 20:55:55 Hand Collator: PHILLIP MEASUREMENT RESULTS: Intervals: Rate: 76 MN: 144 QRSD: 86 QT: 368 QTc: 414 [place]: P: 37 MN: 144 QRS: 11 T: 39 INTERPRETIVE STATEMENTS: Normal sinus rhythm Nonspecific T wave abnormality Abnormal ECG Compared to ECG 08/08/2019 15:56:12 T-wave abnormality now present Myocardial infarct finding no longer present Electronically Signed On 10-15-20 11:27:26 PADDLE DYEING MACHINE OPERATOR by Eriberto Seo
== END 2020-10-13 01:03 | disposition home or self-care (01) ==
LOC: ER 15:58
DX: F10.239 Alcohol dependence with withdrawal, unspecified (principal); R10.10 Upper abdominal pain, unspecified; R19.7 Diarrhea, unspecified; E11.9 Type 2 diabetes mellitus without complications; K21.9 Gastro-esophageal reflux disease without esophagitis; E78.00 Pure hypercholesterolemia, unspecified; I10 Essential (primary) hypertension
CPT/HCPCS: 96361; 93005; 85025; 80048; 36415; 80320; 80076; 81003; 83690; 74177; 96375; 96374; 99284; Q9967; J7030; J2405

== ENCOUNTER 2022-03-09 15:57 | Emergency (ER) | payer OTHER ==
--- OUTSIDE RECORDS SUMMARY | 2022-03-09 16:02 | XMS REPORT | Continuity of Care Document ---
:1950 Author Organization [facility] t Address [address] [place] [address] Care Team Providers Name Role Phone Mikey Goode Primary Care Physician Sepideh MOORE Attending Clinician Sandra MOORE, G Attending Clinician Radha MOORE, H Attending Clinician Deny NEVES, T Attending Clinician Unavailable Hamilton TRACEY Attending Clinician Only, Test Attending Clinician Unavailable Payers Payer Name Policy Type Policy Number Effective Date Expiration Date Dorothea kelley [facility] MEDICARE [id number] 2021 ADVANTAGE 00:00:00 Problems Condition Condition Condition Status Onset Resolution Last Treating Co mments Source Name Details Category Date Date Treatment Clinician Date No known No known Disease Unive rs active active ity of problems problems [facility] Allergies, Adverse Reactions, Alerts This patient has no known allergies or adverse reactions. Social History Social Habit Start Date Stop Date Quantity Comments Source History [facility] Health Alcohol Std Drinks History [facility] Health Alcohol Binge History [facility] Alcohol Comment Exposure to Not sure [facility] SARS-CoV-2 (event) History of tobacco Smoker Univer sity of use [facility] Tobacco use and 2021-11-12 2021-11-12 Smokeless [facility] exposure 00:00:00 00:00:00 tobacco non-user Alcohol intake 2021-11-12 2021-11-12 Lifetime [facility] 00:00:00 00:00:00 non-drinker (finding) History [facility] 2021-11-12 2021-11-12 1 [facility] Alcohol Frequency 00:00:00 00:00:00 Cigarettes smoked 2021-03-06 2021-03-06 Univers ity of current (pack per 00:00:00 00:00:00 [facility] ) - Reported Branch Cigarette 2021-03-06 2021-03-06 University of pack-years 00:00:00 00:00:00 [facility] Sex Assigned At [birth year] [facility] 00:00:00 00:00:00 Smoking Status Start Date Stop Date Source Never smoked tobacco [facility] Former smoker 2021-03-06 00:00:00 2021-03-06 00:00:00 [facility] Medications Ordered Filled Start Stop Current Ordering Indication Dosage Frequency Signature Comments Components Source Medication Medication Date Date Medication? Clinician (SIG) Name Name aspirin 81 Yes 81mg Chew 81 UT MG chewable 2-08 mg. Health tablet 14:02: 09 magnesium Yes 400mg Take 400 UT oxide 2-08 mg by Health (Mag-Ox) 14:02: mouth. 400 MG 09 tablet atorvastati Yes 80mg Take 80 mg UT n (Lipitor) 2-08 by mouth. Hea lth 80 MG 14:02: tablet 09 lisinopril Yes 40mg Take 40 mg U T 40 MG 2-08 by mouth. Health tablet 14:02: 09 furosemide Yes 20mg Take 20 mg U T (Lasix) 20 2-08 by mouth. Heal th MG tablet 14:02: 09 omeprazole Yes 20mg Take 20 mg U T (PriLOSEC) 2-08 by mouth. Heal th [address] 14:02: capsule 09 mometasone Yes APPLY BY [place] (Elocon) 2-02 TOPICAL Health 0.1 % cream 00:00: ROUTE 00 EVERY DAY A THIN FILM TO THE EARS NEEDED FOR ITCHING pregabalin 2020-10 Yes 75mg Q8H Take 75 mg U T (Lyrica) 75 2-07 by mouth Heal th MG capsule 00:00: every 8 00 (eight) hours. montelukast 2020-10 Yes 10mg Take 10 mg UT (Singulair) 2-05 by mouth 1 He alth 10 MG 00:00: (one) time tablet 00 each day in the morning. lisinopriL Yes 40mg Take 40 mg U nivers 40 mg 7-27 by mouth ity of tablet 15:07: daily. [address] Branch atorvastati Yes 80mg Take 80 mg Univers n 80 mg 7-27 by mouth ity of tablet 15:07: at [place] [address] bedtime. Medical Branch omeprazole Yes 20mg Take 20 mg U nivers 20 mg 7-27 by mouth ity of capsule 15:07: daily. [address] aspirin 81 Yes 81mg Take 81 mg U nivers mg chewable 7-27 by mouth ity of tablet 15:07: daily. [address] furosemide Yes 20mg Take 20 mg U nivers 20 mg 7-27 by mouth ity of tablet 15:07: daily. [address] pregabalin Yes 75mg Take 75 mg U nivers (LYRICA) 75 7-27 by mouth 2 it y of mg capsule 15:07: (two) [place] [address] times [facility] daily. Branch montelukast Yes 10mg Take 10 mg Univers 10 mg 7-27 by mouth. ity of tablet 15:07: [address] magnesium Yes 400mg Take 400 Uni vers oxide 400 7-27 mg by ity of mg (241.3 15:07: mouth 2 [place] [address] (two) [facility] magnesium) times [place] tablet daily. hydrocortis Yes [id number] Apply to Univers one 2.5 % 7-27 affected ity of cream 00:00: area(s) 2 [place] [address] (two) Medical times Branch daily as needed for Rash. Stop when clear, okay to resume if rash returns. Mix with equal amount of ketoconazo le when applying. ketoconazol Yes [id number] Apply to Univers e 2 % cream 7-27 area(s) 2 ity of 00:00: (two) [address] daily as Branch needed for Rash. Stop when clear, okay to resume if rash returns. Mix with equal amount of hydrocorti sone when applying. acetaminoph Yes 1{tbl} Take 1 Un hitesh en-codeine 7-10 tablet by ity of (TYLENOL-CO 00:00: mouth [place] DEINE #3) 00 every 6 Medical 300-30 mg (six) Branch tablet hours as needed for Pain (scale 4-6). Vital Signs Vital Name Observation Time Observation Value Comments Source Body height 2021-11-12 19:15:00 172.7 cm [facility] Body weight 2021-11-12 19:15:00 116.121 kg [facility] BMI 2021-11-12 19:15:00 38.92 kg/m2 [facility] Procedures This patient has no known procedures. Encounters Start End Encounter Admission Attending Care Care Encounter Source Date/Time Date/Time Type Type Clinicians Facility Department ID 2021-11-12 Outpatient [facility] [id number] [place] 13:16:27 Health 2021-11-12 2021-11-12 Office JEAN-PAUL Bunn [facility] [id number] [place] 13:00:00 13:37:33 Visit Dionisio CLAY [id number] H [facility] [id number] [address] [address] [id number] 2021-11-12 2021-11-12 Office THOMAS Flores [id number] 11:00:00 11:00:00 Visit Franky JACKSON [id number] ity sol HERNANDEZ [id number] [facility] [id number] [facility] AND ADAM [address] [place] [address] DIABETES CLINIC 2020-05-23 2020-05-23 Telephone NED Garcia [id number] 00:00:00 00:00:00 Handy GARCIA [id number] [facility] [id number] 2020-05-23 2020-05-23 Letter NED Barclay [id number] 00:00:00 00:00:00 (Out) Chika GARCIA [id number] [facility] [id number] 2020-05-23 2020-05-23 Letter THOMAS Villasenor [id number] 00:00:00 00:00:00 (Out) Shinta Inna [id number] [place] [id number] [place] [id number] 2020-05-22 2020-05-22 Laboratory Only, [facility] [id number] 11:48:05 12:03:05 Only Test Inna [id number] [place] [id number] [place] [id number] Results This patient has no known results.
--- NOTE | 2022-03-09 16:26 | ER ---
Nurse's Notes [facility] Name: Srinivas Castrejon Age: 71 yrs Sex: Male : 1950 Arrival Date: 03/09/2022 Time: 16:01 Bed 17 Private MD: Nam Goode T Diagnosis: Type 2 diabetes mellitus with hyperglycemia Presentation: 03/09 16:15 Chief complaint: Patient states: Receives his insulin in the mail from the [place] pharmacy, ph reports that his last shipment was late, ice pack was no longer cold and insulin was warm but clear in appearance so he used it in his insulin pump. Reports that BGL has been poorly controlled since yesterday, even after giving himself multiple boluses based on sliding scale. BGL in triage 198, pt has no other complaint. Coronavirus screen: Vaccine status: Patient reports receiving the 2nd dose of the covid vaccine. Ebola Screen: No symptoms or risks identified at this time. Initial Sepsis Screen: Does the patient meet any 2 criteria? No. Patient's initial sepsis screen is negative. Does the patient have a suspected source of infection? No. Patient's initial sepsis screen is negative. Risk Assessment: Do you want to hurt yourself or someone else? Patient reports no desire to harm self or others. Onset of symptoms was March 09, 2022. 16:15 Method Of Arrival: Ambulatory ph 16:15 Acuity: BETTY 4 ph Triage Assessment: 16:19 General: Appears in no apparent distress. comfortable, well groomed, Behavior is calm, ph cooperative, appropriate for age, Denies fever, feeling ill. Pain: Denies pain. Neuro: Level of Consciousness is awake, alert, obeys commands, Oriented to person, place, time, situation. Cardiovascular: Capillary refill < 3 seconds in bilateral fingers Patient's skin is warm and dry. Respiratory: Airway is patent Respiratory effort is even, unlabored. GI: No signs and/or symptoms were reported involving the gastrointestinal system. Derm: Skin is intact, is healthy with good turgor, Skin is pink, warm \T\ dry. Musculoskeletal: Circulation, motion, and sensation intact. Range of motion: intact in all extremities. Historical: - Allergies: 16:20 No Known Allergies; ph - PMHx: 16:20 Alcoholism; Diabetes - NIDDM; GERD; High Cholesterol; Hypertension; ph - Immunization history:: Adult Immunizations unknown. - Family history:: not pertinent. - Social history:: Smoking status: Patient denies any tobacco usage or history of. Screenin:20 Abuse screen: Denies threats or abuse. Denies injuries from another. Nutritional ph screening: No deficits noted. Tuberculosis screening: No symptoms or risk factors identified. Fall Risk None identified. Assessment: 16:19 Reassessment: Dr Chung at bedside to speak w/ pt. Will prescribe pt more insulin for ph pump, pt awaiting d/c instrcutions. General: SEE TRIAGE ASSESSMENT. Vital Signs: 16:15 BP 142 / 89; Pulse 70; Resp 18; Temp 98.0; Pulse Ox 99% on R/A; ph ED Course: 16:01 Patient arrived in ED. am2 16:01 Nam Goode MD is Private Physician. am2 16:03 Josh Chung MD is Attending Physician. tae 16:14 Leigh Burton, RN is Primary Nurse. ph 16:19 Triage completed. ph 16:19 Arm band placed on Patient placed in an exam room. ph 16:20 No provider procedures requiring assistance completed. Patient did not have IV access ph during this emergency room visit. 16:21 Patient has correct armband on for positive identification. Bed in low position. Call ph light in reach. 16:24 Nam Goode MD is Referral Physician. [facility] Administered Medications: No medications were administered Medication: 16:20 VIS not applicable for this client. ph Outcome: 16:25 Discharge ordered by . [facility] 16:41 Discharged to home ambulatory. ph 16:41 Condition: good 16:41 Discharge instructions given to patient, Instructed on discharge instructions, follow up and referral plans. medication usage, Demonstrated understanding of instructions, follow-up care, medications, Prescriptions given X 1. 16:41 Patient left the ED. ph Signatures: Josh Chung MD MD cha Hall, Patricia, RN RN ph Leonor Poole am2
--- NOTE | 2022-03-09 16:26 | EDPHYS ---
Physician Documentation [facility] [place] [place] Name: Srinivas Castrejon Age: 71 yrs Sex: Male : 1950 Arrival Date: 03/09/2022 Time: 16:01 Bed 17 Private MD: Nam Goode T ED Physician Josh Chung HPI: 03/09 16:14 This 71 yrs old Male presents to ER via Unassigned with complaints of Low tae Blood Sugar. 16:14 The patient or guardian reports hypoglycemia. Onset: The symptoms/episode tae began/occurred today. Associated signs and symptoms: Pertinent positives: None. Pertinent negatives: None. Current symptoms: In the emergency department the patient's symptoms are unchanged from the initial presentation. Historical: - Allergies: 16:20 No Known Allergies; ph - PMHx: 16:20 Alcoholism; Diabetes - NIDDM; GERD; High Cholesterol; Hypertension; ph - Immunization history:: Adult Immunizations unknown. - Family history:: not pertinent. - Social history:: Smoking status: Patient denies any tobacco usage or history of. ROS: 16:14 Constitutional: Negative for fever, chills, and weight loss, Eyes: Negative for injury, tae pain, redness, and discharge, ENT: Negative for injury, pain, and discharge, Neck: Negative for injury, pain, and swelling, Cardiovascular: Negative for chest pain, palpitations, and edema, Respiratory: Negative for shortness of breath, cough, wheezing, and pleuritic chest pain, Abdomen/GI: Negative for abdominal pain, nausea, vomiting, diarrhea, and constipation, Back: Negative for injury and pain, : Negative for injury, bleeding, discharge, and swelling, MS/Extremity: Negative for injury and deformity, Skin: Negative for injury, rash, and discoloration, Neuro: Negative for headache, weakness, numbness, tingling, and seizure, Psych: Negative for depression, anxiety, suicide ideation, homicidal ideation, and hallucinations, Allergy/Immunology: Negative for hives, rash, and allergies, Hematologic/Lymphatic: Negative for swollen nodes, abnormal bleeding, and unusual bruising. 16:14 Endocrine: Positive for polyuria. Exam: 16:14 Constitutional: This is a well developed, well nourished patient who is awake, alert, tae and in no acute distress. Head/Face: Normocephalic, atraumatic. Eyes: Pupils equal round and reactive to light, extra-ocular motions intact. Lids and lashes normal. Conjunctiva and sclera are non-icteric and not injected. Cornea within normal limits. Periorbital areas with no swelling, redness, or edema. ENT: Nares patent. No nasal discharge, no septal abnormalities noted. Tympanic membranes are normal and external auditory canals are clear. Oropharynx with no redness, swelling, or masses, exudates, or evidence of obstruction, uvula midline. Mucous membranes moist. Neck: Trachea midline, no thyromegaly or masses palpated, and no cervical lymphadenopathy. Supple, full range of motion without nuchal rigidity, or vertebral point tenderness. No Meningismus. Chest/axilla: Normal chest wall appearance and motion. Nontender with no deformity. No lesions are appreciated. Cardiovascular: Regular rate and rhythm with a normal S1 and S2. No gallops, murmurs, or rubs. Normal PMI, no JVD. No pulse deficits. Respiratory: Lungs have equal breath sounds bilaterally, clear to auscultation and percussion. No rales, rhonchi or wheezes noted. No increased work of breathing, no retractions or nasal flaring. Abdomen/GI: Soft, non-tender, with normal bowel sounds. No distension or tympany. No guarding or rebound. No evidence of tenderness throughout. Back: No spinal tenderness. No costovertebral tenderness. Full range of motion. Male : Normal genitalia with no discharge or lesions. Skin: Warm, dry with normal turgor. Normal color with no rashes, no lesions, and no evidence of cellulitis. MS/ Extremity: Pulses equal, no cyanosis. Neurovascular intact. Full, normal range of motion. Neuro: Awake and alert, GCS 15, oriented to person, place, time, and situation. Cranial nerves II-XII grossly intact. Motor strength 5/5 in all extremities. Sensory grossly intact. Cerebellar exam normal. Normal gait. Psych: Awake, alert, with orientation to person, place and time. Behavior, mood, and affect are within normal limits. Vital Signs: 16:15 BP 142 / 89; Pulse 70; Resp 18; Temp 98.0; Pulse Ox 99% on R/A; ph MDM: 16:04 Patient medically screened. tae 16:15 Differential diagnosis: hyperglycemia, hypoglycemic episode. Data reviewed: vital tae signs, nurses notes, lab test result(s). Data interpreted: conveyor monitor: rate is 80 beats/min, rhythm is regular. Counseling: I had a detailed discussion with the patient and/or guardian regarding: the historical points, exam findings, and any diagnostic results supporting the discharge/admit diagnosis, the need for outpatient follow up, for definitive care, 03/09 16:20 Order name: Glucose, Ancillary Testing EDMS Administered Medications: No medications were administered Disposition Summary: 03/09/22 16:25 Discharge Ordered Location: Home tae Problem: new tae Symptoms: have improved tae Condition: Stable tae Diagnosis - Type 2 diabetes mellitus with hyperglycemia tae Followup: tae - With: Nam Goode MD - When: 2 - 3 days - Reason: Recheck today's complaints, Continuance of care, Re-evaluation by your physician Followup: tae - With: Private Physician - When: 2 - 3 days - Reason: Recheck today's complaints, Continuance of care, Re-evaluation by your physician Discharge Instructions: - Discharge Summary Sheet ate - Diabetes Mellitus and Sick Day Management tae - Hyperglycemia tae - Diabetes Mellitus and Nutrition, Adult tae - Form - Daily Diabetes Record [facility] Forms: - Medication Reconciliation Form tae - Thank You Letter tae - Antibiotic Education tae - Prescription Opioid Use tae Prescriptions: - Novolin R Regular U-100 Insuln 100 unit/mL Injection solution - inject 0.05 unit per kilogram by INTRAVENOUS route as directed as a single tae rapid injection; 3 vial; Refills: 0, Product Selection Permitted Signatures: Josh Chung MD MD cha Hall, Patricia RN RN ph
[2022-03-09 16:46] VITALS: BP 142/89; TEMP 98; O2SAT 99
== END 2022-03-09 16:41 | disposition home or self-care (01) ==
LOC: ER 15:57
DX: E11.65 Type 2 diabetes mellitus with hyperglycemia (principal); E78.00 Pure hypercholesterolemia, unspecified; I10 Essential (primary) hypertension; F10.20 Alcohol dependence, uncomplicated
CPT/HCPCS: 82947; 99282